=== PATIENT | female | born 1995 | race Caucasian/White ===

== ENCOUNTER 2019-10-05 17:03 | Emergency (ER) | payer OTHER ==
[~2019-10-05] VITALS: Ht 172.7 cm; Wt 73.3 kg
[2019-10-05 17:12] VITALS: BP 128/78
[2019-10-05] MEDS ORDERED: METHOCARBAMOL 750 MG TABLET PO ONE (18:00)
[2019-10-05] MEDS ORDERED: KETOROLAC 30 MG/1 ML IM ONE (18:00)
[2019-10-05] MEDS ORDERED: METHOCARBAMOL 750 MG TABLET ONE (18:00)
[2019-10-05] MEDS ORDERED: KETOROLAC 30 MG/1 ML ONE ×2 (18:00→18:01)
== END 2019-10-05 18:34 | disposition home or self-care (01) ==
LOC: ED 17:50
DX: S09.90XA Unspecified injury of head, initial encounter (principal); M54.2 Cervicalgia; R51 Headache; V49.49XA Driver injured in collision with other motor vehicles in traffic accident, initial encounter; Y93.89 Activity, other specified; Y92.009 Unspecified place in unspecified non-institutional (private) residence as the place of occurrence of the external cause; Y99.8 Other external cause status
CPT/HCPCS: 96372; 99283; J1885

== ENCOUNTER 2020-02-15 12:27 | Emergency (ER) | payer OTHER ==
[~2020-02-15] VITALS: Ht 172.7 cm; Wt 76.5 kg
[2020-02-15 12:30] VITALS: BP 123/69
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
--- NOTE | 2020-02-15 13:18 | NUR ---
Patient/Caregiver given discharge instructions and they have confirmed that they understand the instructions. Patient ambulatory with steady gait.
== END 2020-02-15 13:20 | disposition home or self-care (01) ==
LOC: ED 12:51
DX: S00.11XA Contusion of right eyelid and periocular area, initial encounter (principal); X58.XXXA Exposure to other specified factors, initial encounter; Y93.89 Activity, other specified; Y92.009 Unspecified place in unspecified non-institutional (private) residence as the place of occurrence of the external cause; Y99.8 Other external cause status
CPT/HCPCS: 99281; 99282